=== PATIENT | female | born 1930 | race Caucasian/White ===

== ENCOUNTER 2017-11-28 19:24 | Observation (INO) | payer MEDICARE ==
[2017-11-28] MEDS: Ketorolac 30 MG/ML SDV IVPUSH ONE ×2 (20:06→20:31)
--- NOTE | 2017-11-28 20:08 | EDM.PDOC ---
ED HPI GENERAL MEDICAL PROBLEM - General Chief Complaint: Abdominal Pain Stated Complaint: ABD PAIN Time Seen by Provider: 11/28/17 19:30 Source of Information: Reports: Patient History Limitations: Reports: No Limitations - History of Present Illness INITIAL COMMENTS - FREE TEXT/NARRATIVE: According to patient she diana been having lower abdominal pain for past 1 wk now , pain is diffused and all over the abdomen. No abdominal bloating. no nausea or vomiting. She camilla been having watery diarrhea for past 3-4 days. no blood or mucus in the stool. stool are small quantity. Pt claims her last episode of diarrhea was today morning. Pt was seen in the clinic on Sunday and had CBC, CMP and UA done, which were normal. reassured by her PCP to rest and hydration.advised to stop her Vit D capsules. Pt is here as her pain has not got better. No fever or chills. No other complaints. Onset: Gradual Onset Date: 11/21/17 Duration: Getting Worse Location: Reports: Abdomen Quality: Reports: Ache, Dull Severity: Moderate Improves with: Reports: None Worsens with: Reports: None Associated Symptoms: Denies: Confusion, Chest Pain, Cough, Diaphoresis, Fever/ Chills, Headaches, Nausea/Vomiting, Rash, Seizure, Shortness of Breath, Syncope , Weakness - Related Data Allergies Allergy/AdvReac Type Severity Reaction Status Date / Time Tetanus Vaccines and Toxoid Allergy does not Verified 11/28/17 19:50 remember Home Meds: Home Meds Apixaban [Eliquis] 2.5 mg PO BID 11/28/17 [History] Donepezil HCl 5 mg PO DAILY 11/28/17 [History] Insulin Glarg,Human.Rec.Analog [Lantus] 0 unit SUBCUT DAILY 11/28/17 [History] Magnesium 400 mg PO DAILY 11/28/17 [History] Metoprolol Succinate [Toprol XL] 25 mg PO DAILY 11/28/17 [History] glipiZIDE/Metformin HCl [GlipiZIDE-Metformin 5-500 MG] 1 tab PO WITHBREAKFAST [History] ED ROS GENERAL - Review of Systems Review Of Systems: See Below Constitutional: Denies: Fever, Chills, Malaise, Weakness HEENT: Denies: Rhinitis, Throat Pain, Throat Swelling Respiratory: Denies: Shortness of Breath, Wheezing, Pleuritic Chest Pain, Cough , Sputum Cardiovascular: Denies: Chest Pain, Lightheadedness Endocrine: Denies: Fatigue GI/Abdominal: Reports: Abdominal Pain, Diarrhea, Flatus. Denies: Constipation, Distension, Nausea, Vomiting : Denies: Dysuria Musculoskeletal: Denies: Joint Pain, Joint Swelling Skin: Denies: Bruising, Pruritis, Rash ED EXAM, GENERAL - Physical Exam Exam: See Below Exam Limited By: No Limitations General Appearance: Alert, WD/WN, No Apparent Distress, Other (pty has unusual exagerrated pain response, almost jumps with pain even to touch of the abdominal wall.) Eye Exam: Bilateral Eye: EOMI, PERRL Ears: Normal External Exam, Normal Canal, Hearing Grossly Normal, Normal TMs Ear Exam: Bilateral Ear: Auricle Normal, Canal Normal, TM normal Nose: Normal Inspection, Normal Mucosa, No Blood Throat/Mouth: Normal Inspection, Normal Lips, Normal Teeth, Normal Gums, Normal Oropharynx, Normal Voice, No Airway Compromise Head: Atraumatic, Normocephalic Neck: Normal Inspection, Supple, Non-Tender, Full Range of Motion Respiratory/Chest: No Respiratory Distress, Lungs Clear, Normal Breath Sounds, No Accessory Muscle Use, Chest Non-Tender Cardiovascular: Normal Peripheral Pulses, Regular Rate, Rhythm, No Edema, No Gallop, No JVD, No Murmur, No Rub Peripheral Pulses: 2+: Radial (L), Radial (R), Popliteal (L), Popliteal (R) GI/Abdominal: Normal Bowel Sounds, Soft, No Organomegaly, No Distention, No Abnormal Bruit, No Mass, Tender (all over abdomen to touch and palpation, more so in the left lower quadrant.) Back Exam: Normal Inspection, Full Range of Motion, NT Extremities: Normal Inspection, Normal Range of Motion, Non-Tender, Normal Capillary Refill, No Pedal Edema Skin Exam: Warm, Intact EKG INTERPRETATION EKG Date: 11/28/17 Rhythm: A-Fib Wil[place]: Normal P-Wave: Absent QRS: Normal ST-T: Normal QT: Normal Course - Vital Signs Text/Narrative:: Pt has had abdominal pain close to 2 wks now, and has been having loose stools for past 3-4 days. she does have left lower quadrant pain. her CMP shows slightly low sodium of 132 and her creat is 1.3. She appears dehydrated. pt did receive toradol 30mg one time in the ER and also has been started on normal saline at 150cc/hr. Her Abdomen and pelvis does show some thickening of the colon and sigmoid colon which could be from her gastroenteritis. She does not appear to have diverticulitis even though she has severe diverticulosis of colon. Will get stool culture done with next sample of stool. Plan is to admit patient and will hydrate her with Normal saline 125cc/hr. her white count elevation could be reactive elevation. will repeat CBC in am before starting antibiotics. Only ice chips by mouth. Pt does have b/l pleural effusion and small pericardial effusion, which appears chronic, she does not have any cardiopulmonary symptoms, her main concern is abdominal pain. Pt ruby in [place], [place] and moves up here in summer.She probably will need to have some outpatient workup on her effusion. Last Recorded V/S: Last Vital Signs Temp 98 F 11/28/17 20:47 Pulse 158 H 11/28/17 20:47 Resp 20 11/28/17 20:47 BP 105/81 11/28/17 20:47 Pulse Ox 96 11/28/17 20:47 - Orders/Labs/Meds Orders: Active Orders 24 hr Category Date Time Status EKG Documentation Completion [RC] ASDIRECTED Care 11/28/17 19:44 Active Abdomen Pelvis wo Cont [CT] Stat Exams 11/28/17 19:36 Taken Sodium Chloride 0.9% [Normal Saline] 1,000 ml Med 11/28/17 20:45 Active IV ASDIRECTED Medication Orders Sodium Chloride (Normal Saline) 1,000 mls @ 150 mls/hr IV ASDIRECTED VERONICA Last Admin: 11/28/17 20:15 Dose: 150 mls/hr Labs: Laboratory Tests 11/28/17 11/28/17 11/28/17 Range/Units 20:00 20:00 20:15 WBC 14.9 H (4.0-11.0) K/uL RBC 5.18 (3.80-5.80) M/uL Hgb 14.7 (11.5-16.5) g/dL Hct 44.5 (37.0-47.0) % MCV 86 (76-96) fL MCH 28.4 (27.0-32.0) pg MCHC 33.0 (31.0-35.0) g/dL RDW 15.9 (11.0-16.0) % Plt Count 211 (150-500) K/uL MPV 10.3 H (6.0-10.0) fL Neut % (Auto) 92.8 H (45.0-70.0) % Lymph % (Auto) 1.9 L (20.0-40.0) % [place] % (Auto) 5.2 (3.0-10.0) % Eos % (Auto) 0.0 L (1.0-5.0) % Baso % (Auto) 0.1 (0.0-0.5) % Neut # (Auto) 13.81 H (2.00-7.50) K/uL Lymph # (Auto) 0.29 L (1.50-4.00) K/uL [place] # (Auto) 0.77 (0.20-0.80) K/uL Eos # (Auto) 0.00 L (0.04-0.40) K/uL Baso # (Auto) 0.02 (0.02-0.10) K/uL Whole Blood INR 1.6 (1.0-3.5) Sodium 132 L (136-145) mmol/L Potassium 4.5 (3.5-5.1) mmol/L Chloride 97 L (98-107) mmol/L Carbon Dioxide 19.8 L (21.0-32.0) mmol/L Anion Gap 19.7 H (5.0-15.0) mmol/L BUN 30 H (8-26) mg/dL Creatinine 1.38 H (0.55-1.02) mg/dL Est Cr Clr Drug Dosing TNP Estimated GFR (MDRD) 36 L (>60) MLS/MIN BUN/Creatinine Ratio 21.7 (6-25) Glucose 195 H D (74-100) mg/dL Calcium 8.4 L (8.5-10.1) mg/dL Total Bilirubin 2.4 H D (0.0-1.0) mg/dL AST 35 (15-37) U/L ALT 34 (12-78) U/L Alkaline Phosphatase 61 (46-116) U/L Total Protein 6.4 (6.4-8.2) g/dL Albumin 3.0 L (3.4-5.0) g/dL Globulin 3.4 (2.2-4.2) g/dL Albumin/Globulin Ratio 0.9 (0.8-2.0) Meds: Medications Generic Name Dose Route Start Last Admin Trade Name Miguel PRN Reason Stop Dose Admin Sodium Chloride 1,000 mls @ 150 mls/hr 11/28/17 20:45 11/28/17 20:15 Normal Saline IV 150 mls/hr ASDIRECTED VERONICA Administration Discontinued Medications Generic Name Dose Route Start Last Admin Trade Name Miguel PRN Reason Stop Dose Admin Ketorolac Tromethamine Confirm 11/28/17 20:09 11/28/17 20:14 Toradol Administered 11/28/17 20:10 Not Given Dose 30 mg .ROUTE .STK-MED ONE Ketorolac Tromethamine 30 mg 11/28/17 20:10 11/28/17 20:06 Toradol IVPUSH 11/28/17 20:11 30 mg ONETIME ONE Administration Ketorolac Tromethamine 30 mg 11/28/17 20:05 11/28/17 20:31 Toradol IVPUSH 11/28/17 20:06 Not Given ONETIME ONE Departure - Departure Time of Disposition: 21:00 Disposition: Refer to Observation Condition: Fair Clinical Impression: Colitis - Discharge Information Referrals: PCP,None [Primary Care Provider] - Forms: ED Department Discharge, ED Return to Work/School Form - Problem List & Annotations (1) Colitis SNOMED Code(s): 87278491 Code(s): K52.9 - NONINFECTIVE GASTROENTERITIS AND COLITIS, UNSPECIFIED Status: Acute Current Visit: Yes - Problem List Review Problem List Initiated/Reviewed/Updated: Yes - My Orders Last 24 Hours: My Active Orders 11/28/17 19:36 Abdomen Pelvis wo Cont [CT] Stat 11/28/17 19:44 EKG Documentation Completion [RC] ASDIRECTED 11/28/17 20:45 Sodium Chloride 0.9% [Normal Saline] 1,000 ml IV ASDIRECTED - Assessment/Plan Last 24 Hours: My Active Orders 11/28/17 19:36 Abdomen Pelvis wo Cont [CT] Stat 11/28/17 19:44 EKG Documentation Completion [RC] ASDIRECTED 11/28/17 20:45 Sodium Chloride 0.9% [Normal Saline] 1,000 ml IV ASDIRECTED Assessment:: Colitis with mild dehydration Plan: Pt has had abdominal pain close to 2 wks now, and has been having loose stools for past 3-4 days. she does have left lower quadrant pain. her CMP shows slightly low sodium of 132 and her creat is 1.3. She appears dehydrated. pt did receive toradol 30mg one time in the ER and also has been started on normal saline at 150cc/hr. Her Abdomen and pelvis does show some thickening of the colon and sigmoid colon which could be from her gastroenteritis. She does not appear to have diverticulitis even though she has severe diverticulosis of colon. Will get stool culture done with next sample of stool. Plan is to admit patient and will hydrate her with Normal saline 125cc/hr. her white count elevation could be reactive elevation. will repeat CBC in am before starting antibiotics. Only ice chips by mouth. Pt does have b/l pleural effusion and small pericardial effusion, which appears chronic, she does not have any cardiopulmonary symptoms, her main concern is abdominal pain. Pt ruby in [place], [place] and moves up here in summer.She probably will need to have some outpatient workup on her effusion.
[2017-11-28] MEDS: Ketorolac 30 MG/ML SDV ONE (20:14)
[2017-11-28] MEDS: Sodium Chloride 0.9% 1,000 ML IV SCH (20:15)
[2017-11-28] MEDS ORDERED: Sodium Chloride 0.9% 10 ML Syringe FLUSH PRN (20:59)
[2017-11-28] MEDS ORDERED: Ondansetron 4 MG/2 ML SDV IV PRN (20:59)
--- NOTE | 2017-11-29 08:11 | CT ---
UNENHANCED ABDOMEN AND PELVIC CT, 11/28/17 Multislice acquisition through the abdomen and pelvis without IV or oral contrast was performed. No priors. Breathing motion artifact significantly degrades image quality. There are moderate size bilateral pleural effusions, right greater than left. There are atelectatic changes in both lung bases. The heart is enlarged. There is a small pericardial effusion. There are coronary artery calcifications. The unenhanced liver appears normal. No focal hepatic lesions. The gallbladder appears normal. The spleen appears normal. The pancreas is atrophic, but otherwise is unremarkable. There is mild soft tissue fullness of both adrenal glands suggesting adrenal hyperplasia. No adrenal masses. There is mild atrophy of both kidneys. No nephrocalcinosis or nephrolithiasis. No hydronephrosis or hydroureter, There is a small amount of fluid within the bladder. It appears grossly normal. The appendix is not seen. No evidence of appendicitis. There is diverticulosis throughout the colon. There is mural thickening throughout the descending and sigmoid colon. This is probably due to chronic diverticular disease. Colitis should be considered. The patient is status post hysterectomy. There is a moderate amount of free fluid noted within the pelvis. There is also fluid adjacent to the liver and spleen consistent with ascites. No free air. No dilated loops of bowel. No adenopathy. No aortic aneurysm. IMPRESSION: Multiple findings as discussed above. [id number] [facility]
--- NOTE | 2017-11-29 08:47 | PCM.DCSUM1 ---
Discharge Summary - Hospital Course Free Text/Narrative:: Pt apparently presented with acute abdomen with diarrhea. Pt was admitted with diagnosis of colitis with dehydration. Pt's initially white count was 14.900, which appeared more like inflammatory reaction. She had no other constitutional symptoms. Pt was admitted for IV hydration and to monitor her diarrhea. Pt has done well over night. She has not had anymore loose stools. also today morning her abdominal pain has resolved. Her white count is 11.2 today and her bmp has improved. Has been tolerating breakfast well. no fever or chills. Vitals stable. Clinical exam is normal. It does appear like patient had episode of gastroenteritis, which is resolving by natural course. I did discuss with patient about her pleural effusion. Pt claims that she has been told by her doctor back in [place] several times about it and that is not new to her. At this point pt is doing well. No complaints. Will plan on discharge today.Continue home meds. Soft diet. Avoid dairy products for 2 days. F/U in clinic in 1 wk for followup. Brief History: Pt presented to emergency room with diarrhea and abdominal pain. kindly see the H&P for details. - Discharge Data Discharge Date: 11/29/17 Discharge Disposition: Home, Self-Care 01 Condition: Good - Discharge Diagnosis/Problem(s) (1) Colitis SNOMED Code(s): 40453197 ICD Code: K52.9 - NONINFECTIVE GASTROENTERITIS AND COLITIS, UNSPECIFIED Status: Acute Current Visit: Yes - Patient Instructions Diet: Mechanical Soft Fluid Restriction: 1500 mL Activity: As Tolerated Driving: May Drive Today Showering/Bathing: May Shower - Discharge Plan Home Medications: Home Meds Apixaban [Eliquis] 2.5 mg PO BID 11/28/17 [History] Donepezil HCl 5 mg PO DAILY 11/28/17 [History] Insulin Glarg,Human.Rec.Analog [Lantus] 0 unit SUBCUT DAILY 11/28/17 [History] Magnesium 400 mg PO DAILY 11/28/17 [History] Metoprolol Succinate [Toprol XL] 25 mg PO DAILY 11/28/17 [History] glipiZIDE/Metformin HCl [GlipiZIDE-Metformin 5-500 MG] 1 tab PO WITHBREAKFAST [History] Forms: ED Department Discharge, ED Return to Work/School Form Referrals: PCP,None [Primary Care Provider] - - Discharge Summary/Plan Comment DC Time >30 min.: Yes Discharge Summary/Plan Comment: At this point pt is doing well. No complaints. Will plan on discharge today.Continue home meds. Soft diet. Avoid dairy products for 2 days. F/U in clinic in 1 wk for followup. - General Info Date of Service: 11/29/17 Functional Status: Reports: Pain Controlled, Tolerating Diet, Ambulating, Urinating - Review of Systems General: Denies: Fever, Weakness, Fatigue HEENT: Denies: Headaches, Sinus Congestion, Sore Throat Pulmonary: Denies: Shortness of Breath, Sputum, Hemoptysis, Wheezing Cardiovascular: Denies: Chest Pain, Lightheadedness Gastrointestinal: Reports: Flatus. Denies: Abdominal Pain, Diarrhea, Nausea, Vomiting Genitourinary: Denies: Dysuria, Frequency Musculoskeletal: Denies: Joint Pain, Joint Swelling Skin: Denies: Bruising, Pruritis Neurological: Denies: Confusion, Dizziness, Seizure - Patient Data Vitals - Most Recent: Last Vital Signs Temp 97.8 F 11/29/17 07:05 Pulse 61 11/29/17 07:05 Resp 20 11/29/17 07:05 BP 108/75 11/29/17 07:05 Pulse Ox 96 11/29/17 07:05 Weight - Most Recent: 73.142 kg I&O - Last 24 hours: Intake & Output 11/28/17 11/29/17 11/29/17 22:59 06:59 14:59 Intake Total 40 Output Total 0 Balance 40 Lab Results - Last 24 hrs: Laboratory Results - last 24 hr 11/28/17 11/28/17 11/28/17 Range/Units 20:00 20:00 20:15 WBC 14.9 H (4.0-11.0) K/uL RBC 5.18 (3.80-5.80) M/uL Hgb 14.7 (11.5-16.5) g/dL Hct 44.5 (37.0-47.0) % MCV 86 (76-96) fL MCH 28.4 (27.0-32.0) pg MCHC 33.0 (31.0-35.0) g/dL RDW 15.9 (11.0-16.0) % Plt Count 211 (150-500) K/uL MPV 10.3 H (6.0-10.0) fL Neut % (Auto) 92.8 H (45.0-70.0) % Lymph % (Auto) 1.9 L (20.0-40.0) % [place] % (Auto) 5.2 (3.0-10.0) % Eos % (Auto) 0.0 L (1.0-5.0) % Baso % (Auto) 0.1 (0.0-0.5) % Neut # (Auto) 13.81 H (2.00-7.50) K/uL Lymph # (Auto) 0.29 L (1.50-4.00) K/uL [place] # (Auto) 0.77 (0.20-0.80) K/uL Eos # (Auto) 0.00 L (0.04-0.40) K/uL Baso # (Auto) 0.02 (0.02-0.10) K/uL Whole Blood INR 1.6 (1.0-3.5) Sodium 132 L (136-145) mmol/L Potassium 4.5 (3.5-5.1) mmol/L Chloride 97 L (98-107) mmol/L Carbon Dioxide 19.8 L (21.0-32.0) mmol/L Anion Gap 19.7 H (5.0-15.0) mmol/L BUN 30 H (8-26) mg/dL Creatinine 1.38 H (0.55-1.02) mg/dL Est Cr Clr Drug Dosing TNP Estimated GFR (MDRD) 36 L (>60) MLS/MIN BUN/Creatinine Ratio 21.7 (6-25) Glucose 195 H D (74-100) mg/dL Calcium 8.4 L (8.5-10.1) mg/dL Total Bilirubin 2.4 H D (0.0-1.0) mg/dL AST 35 (15-37) U/L ALT 34 (12-78) U/L Alkaline Phosphatase 61 (46-116) U/L Total Protein 6.4 (6.4-8.2) g/dL Albumin 3.0 L (3.4-5.0) g/dL Globulin 3.4 (2.2-4.2) g/dL Albumin/Globulin Ratio 0.9 (0.8-2.0) 11/29/17 11/29/17 Range/Units 07:10 07:10 WBC 11.2 H D (4.0-11.0) K/uL RBC 4.95 (3.80-5.80) M/uL Hgb 14.1 (11.5-16.5) g/dL Hct 43.2 (37.0-47.0) % MCV 87 (76-96) fL MCH 28.5 (27.0-32.0) pg MCHC 32.6 (31.0-35.0) g/dL RDW 16.1 H (11.0-16.0) % Plt Count 98 L D (150-500) K/uL MPV 11.1 H (6.0-10.0) fL Neut % (Auto) 87.6 H (45.0-70.0) % Lymph % (Auto) 6.4 L (20.0-40.0) % [place] % (Auto) 5.7 (3.0-10.0) % Eos % (Auto) 0.2 L (1.0-5.0) % Baso % (Auto) 0.1 (0.0-0.5) % Neut # (Auto) 9.78 H (2.00-7.50) K/uL Lymph # (Auto) 0.71 L (1.50-4.00) K/uL [place] # (Auto) 0.63 (0.20-0.80) K/uL Eos # (Auto) 0.02 L (0.04-0.40) K/uL Baso # (Auto) 0.01 L (0.02-0.10) K/uL Whole Blood INR (1.0-3.5) Sodium 133 L (136-145) mmol/L Potassium 4.5 (3.5-5.1) mmol/L Chloride 101 (98-107) mmol/L Carbon Dioxide 19.6 L (21.0-32.0) mmol/L Anion Gap 16.9 H (5.0-15.0) mmol/L BUN 33 H (8-26) mg/dL Creatinine 1.24 H (0.55-1.02) mg/dL Est Cr Clr Drug Dosing 26.94 Estimated GFR (MDRD) 41 L (>60) MLS/MIN BUN/Creatinine Ratio 26.6 H (6-25) Glucose 160 H (74-100) mg/dL Calcium 8.1 L (8.5-10.1) mg/dL Total Bilirubin (0.0-1.0) mg/dL AST (15-37) U/L ALT (12-78) U/L Alkaline Phosphatase (46-116) U/L Total Protein (6.4-8.2) g/dL Albumin (3.4-5.0) g/dL Globulin (2.2-4.2) g/dL Albumin/Globulin Ratio (0.8-2.0) Med Orders - Current: Current Medications Sodium Chloride (Normal Saline) 1,000 mls @ 125 mls/hr IV ASDIRECTED VERONICA Last Admin: 11/28/17 20:15 Dose: 150 mls/hr Ondansetron HCl (Zofran) 4 mg IV Q6H PRN PRN Reason: Nausea/Vomiting Sodium Chloride (Saline Flush) 10 ml FLUSH ASDIRECTED PRN PRN Reason: Keep Vein Open Discontinued Medications Ketorolac Tromethamine (Toradol) Confirm Administered Dose 30 mg .ROUTE .STK- MED ONE Stop: 11/28/17 20:10 Last Admin: 11/28/17 20:14 Dose: Not Given Ketorolac Tromethamine (Toradol) 30 mg IVPUSH ONETIME ONE Stop: 11/28/17 20:11 Last Admin: 11/28/17 20:06 Dose: 30 mg Ketorolac Tromethamine (Toradol) 30 mg IVPUSH ONETIME ONE Stop: 11/28/17 20:06 Last Admin: 11/28/17 20:31 Dose: Not Given - Exam General: Reports: Alert, Oriented HEENT: Reports: Pupils Equal, Pupils Reactive, EOMI, Mucous Membr. Moist/[place] Neck: Reports: Supple Lungs: Reports: Clear to Auscultation, Normal Respiratory Effort Cardiovascular: Reports: Regular Rate, Regular Rhythm GI/Abdominal Exam: Normal Bowel Sounds, Soft, Non-Tender, No Organomegaly, No Distention, No Abnormal Bruit, No Mass, Pelvis Stable Extremities: Normal Inspection, Normal Range of Motion, Non-Tender, No Pedal Edema, Normal Capillary Refill Skin: Reports: Warm, Dry, Intact
== END 2017-11-29 10:37 | disposition home or self-care (01) ==
LOC: LB.ED 19:24 → UNDOADMOB 20:55 → LB.MS 20:55
PROVIDERS: ADMIT Family Medicine; ATTEND Family Medicine
DX: K52.9 Noninfective gastroenteritis and colitis, unspecified (principal); E86.0 Dehydration; I48.91 Unspecified atrial fibrillation; Z79.899 Other long term (current) drug therapy; Z79.4 Long term (current) use of insulin; Z88.7 Allergy status to serum and vaccine; Z79.01 Long term (current) use of anticoagulants
CPT/HCPCS: 36415; 74176; 80048; 80053; 85025; 85610; 93005; 96374; 99285-25; G0378; J1885; J7040